=== PATIENT | male | born 1975 | race Two or more races ===

== ENCOUNTER 2020-07-26 21:28 | Emergency (ER) | payer SELFPAY ==
[~2020-07-26] VITALS: Ht 170.2 cm; Wt 66.4 kg
[2020-07-26] MEDS ORDERED: FLUORESCEIN OPHTHALMIC 1 MG STRIP ONE (21:42)
[2020-07-26] MEDS ORDERED: PROPARACAINE OPHTH 0.5%, 15ML ONE (21:42)
[2020-07-26] MEDS ORDERED: PROPARACAINE OPHTH 0.5%, 15ML EACHEYE ONE (22:00)
[2020-07-26] MEDS ORDERED: FLUORESCEIN OPHTHALMIC 1 MG STRIP EACHEYE ONE (22:00)
--- NOTE | 2020-07-26 22:08 | NUR ---
PATENT WAS WORKING ON [employer] AND GOT BRAKE FLUID IN HIS LEFT EYE. PT STATES 6/10 PAIN, AND BLURRED VISON IN LEFT EYE. PT GETTING EYE IRRIGATION WITH ARTIE LENSE AT THIS TIME. SAFETY MEASURES IN PLACE
[2020-07-26 22:36] VITALS: BP 111/76
== END 2020-07-26 22:38 | disposition home or self-care (01) ==
LOC: ED 22:00
DX: S05.02XA Injury of conjunctiva and corneal abrasion without foreign body, left eye, initial encounter (principal); X58.XXXA Exposure to other specified factors, initial encounter; Y93.89 Activity, other specified; Y92.89 Other specified places as the place of occurrence of the external cause; Y99.8 Other external cause status
CPT/HCPCS: 99283